=== PATIENT | male | born 1995 | race Two or more races ===

== ENCOUNTER 2021-08-03 19:34 | Emergency (ER) | payer OTHER ==
[~2021-08-03] VITALS: Ht 160 cm; Wt 64.4 kg
[2021-08-03] MEDS ORDERED: BACITRACIN1 EACH TOP (20:40)
== END 2021-08-03 20:53 | disposition home or self-care (01) ==
LOC: ER 19:34
DX: T22.212A Burn of second degree of left forearm, initial encounter (principal); X10.2XXA Contact with fats and cooking oils, initial encounter; Y93.89 Activity, other specified; Y92.69 Other specified industrial and construction area as the place of occurrence of the external cause; Y99.8 Other external cause status